=== PATIENT | female | born 1985 | race Caucasian/White ===

== ENCOUNTER → 2017-04-20 | Outpatient (CLI) | payer OTHER ==
[~2017-04-20] MED LIST: ENOX40SY4 SQ; HEPARIN; HEPARIN 5000 UNIT SC; IBUP800T PO; OXYC-302 PO; PREN1TAB60 PO
== END | disposition home or self-care (01) ==
LOC: CFH 08:02
PROVIDERS: ATTEND Obstetrics & Gynecology
DX: N63 Unspecified lump in breast (principal); Z80.3 Family history of malignant neoplasm of breast
CPT/HCPCS: 76641; G0204

== ENCOUNTER 2017-09-19 08:37 | Emergency (ER) | payer OTHER ==
[~2017-09-19] VITALS: Ht 172.7 cm; Wt 69.7 kg
[~2017-09-19 08:37] MED LIST changes: +IBUP-1223 PO; -IBUP800T PO
[2017-09-19 08:51] VITALS: BP 131/85
[2017-09-19] MEDS ORDERED: SODIUM CHLORIDE FLUSH 10ML SYR IVF ONE (10:00)
[2017-09-19] MEDS ORDERED: PROMETHAZINE 25 MG/ML, 1ML IM ONE (10:00)
[2017-09-19] MEDS ORDERED: SODIUM CHLORIDE 0.9% 1,000ML IVBOLUS ONE (10:00)
[2017-09-19] MEDS ORDERED: SODIUM CHLORIDE 0.9%, 500ML IVBOLUS ONE ×2 (10:00→11:30)
[2017-09-19 10:15] LABS: HEMATOCRIT 41.7 % (34.6-47.8); HEMOGLOBIN 14.3 g/dL (11.7-16.4); WHITE BLOOD COUNT 9.9 x10^3/uL (3.4-10)
[2017-09-19] MEDS ORDERED: PROMETHAZINE 25 MG/ML, 1ML ONE (10:24)
[2017-09-19 10:27] LABS: BLOOD UREA NITROGEN 6 mg/dL (7-18)
[2017-09-19 10:30] LABS: ASPARTATE AMINO TRANSFERASE 11 U/L (15-37)
== END 2017-09-19 12:30 | disposition home or self-care (01) ==
LOC: ED 10:17
DX: O99.282 Endocrine, nutritional and metabolic diseases complicating pregnancy, second trimester (principal); O99.352 Diseases of the nervous system complicating pregnancy, second trimester; O21.9 Vomiting of pregnancy, unspecified; E86.0 Dehydration; R11.0 Nausea; Z3A.17 17 weeks gestation of pregnancy
CPT/HCPCS: 36415; 80053; 85025; 96372; 99284; J2550; J7030

== ENCOUNTER 2018-01-09 09:37 | Observation (INO) | payer OTHER ==
[~2018-01-09] VITALS: Ht 172.7 cm; Wt 78.2 kg
[~2018-01-09 09:37] MED LIST changes: +ASPI-515 PO
[2018-01-09 12:54] VITALS: BP 129/74
== END 2018-01-09 13:54 | disposition home or self-care (01) ==
LOC: LDIP 09:37
PROVIDERS: ADMIT Obstetrics & Gynecology; ATTEND Obstetrics & Gynecology
DX: O76 Abnormality in fetal heart rate and rhythm complicating labor and delivery (principal); Z3A.32 32 weeks gestation of pregnancy
CPT/HCPCS: 59025; 76819; 99211; G0378; G0463

== ENCOUNTER 2018-01-30 10:05 | Inpatient (IN) | payer OTHER ==
[~2018-01-30] VITALS: Ht 172.7 cm; Wt 80.0 kg
[2018-01-30 10:58] LABS: MICROSCOPIC INDICATED
[2018-01-30] MEDS ORDERED: PLEASE ENTER HEIGHT AND WEIGHT MC SCH (11:00)
[2018-01-30] MEDS ORDERED: BETAMETHASONE 6 MG/ML, 5ML IM ONE (11:06)
[2018-01-30] MEDS: BETAMETHASONE 6 MG/ML, 5ML IM SCH (11:09)
[2018-01-30 11:10] LABS: BASOPHILS # (AUTO) 0.01 x10^3/uL (0-0.1); BASOPHILS % (AUTO) 0 % (0-1); EOSINOPHILS # (AUTO) 0.05 x10^3/uL (0-0.4); EOSINOPHILS % (AUTO) 1 % (1-7); LYMPHOCYTES # (AUTO) 1.15 x10^3/uL (1-3.4); LYMPHOCYTES % (AUTO) 13 % (22-44); MD NO; MEAN CORPUSCULAR HEMOGLOBIN 30.9 pg (27.0-34.8); MEAN CORPUSCULAR HGB CONC 33.4 g/dL (32.4-35.8); MEAN CORPUSCULAR VOLUME 92.5 fL (80-100); MEAN PLATELET VOLUME 9.4 fL (7.4-10.4); MONOCYTES # (AUTO) 0.65 x10^3/uL (0.2-0.8); MONOCYTES % (AUTO) 8 % (2-9); NEUTROPHILS # (AUTO) 6.79 x10^3/uL (1.8-6.8); NEUTROPHILS % (AUTO) 79 % (42-75); PLATELET COUNT 185 x10^3/uL (130-400); RED BLOOD COUNT 3.85 x10^6/uL (3.82-5.3); RED CELL DISTRIBUTION WIDTH 13.7 % (9.6-15.2)
[2018-01-30 11:21] LABS: ALANINE AMINOTRANSFERASE 15 U/L (12-78); ALBUMIN 2.6 g/dL (3.4-5.0); ANION GAP 8 mmol/L (5-15); CALCIUM 9.2 mg/dL (8.5-10.1); CHLORIDE 106 mmol/L (98-107); CREATININE 0.65 mg/dL (0.55-1.02)
[2018-01-30 11:24] VITALS: BP 133/79
[2018-01-30 11:24] LABS: ALKALINE PHOSPHATASE 116 U/L (45-117); BILIRUBIN,TOTAL 0.2 mg/dL (0.2-1.0); TOTAL PROTEIN 6.6 g/dL (6.4-8.2)
[2018-01-30 11:29] LABS: BILIRUBIN, DIRECT < 0.1 mg/dL (0.1-0.2)
[2018-01-30] MEDS ORDERED: LABETALOL 100 MG TABLET ONE ×2 (18:20→20:34)
[2018-01-30] MEDS ORDERED: CALCIUM CARBONATE 500 MG TAB.CHEW ONE (19:26)
[2018-01-30] MEDS: CALCIUM CARBONATE 500 MG TAB.CHEW PO PRN (19:32)
[2018-01-30] MEDS: HEPARIN 5,000 UNITS/ML, 1ML SQ SCH (19:47)
[2018-01-30] MEDS: LABETALOL 100 MG TABLET PO SCH (20:38)
[2018-01-30] MEDS ORDERED: ZOLPIDEM 5MG TABLET ONE (22:44)
[2018-01-30] MEDS: ZOLPIDEM 5MG TABLET PO PRN (22:46)
[2018-01-31] MEDS ORDERED: CALCIUM CARBONATE 500 MG TAB.CHEW ONE ×2 (00:35→03:08)
[2018-01-31] MEDS: CALCIUM CARBONATE 500 MG TAB.CHEW PO PRN ×2 (00:36→03:10)
[2018-01-31] MEDS: LABETALOL 100 MG TABLET PO SCH (06:00)
[2018-01-31 10:16] LABS: BASOPHILS # (AUTO) 0.02 x10^3/uL (0-0.1); BASOPHILS % (AUTO) 0 % (0-1); EOSINOPHILS # (AUTO) 0.01 x10^3/uL (0-0.4); EOSINOPHILS % (AUTO) 0 % (1-7); LYMPHOCYTES % (AUTO) 10 % (22-44); MD NO; MEAN CORPUSCULAR HEMOGLOBIN 31.1 pg (27.0-34.8); MEAN CORPUSCULAR HGB CONC 33.8 g/dL (32.4-35.8); MEAN CORPUSCULAR VOLUME 91.9 fL (80-100); MEAN PLATELET VOLUME 9.2 fL (7.4-10.4); MONOCYTES # (AUTO) 0.64 x10^3/uL (0.2-0.8); MONOCYTES % (AUTO) 5 % (2-9); NEUTROPHILS # (AUTO) 10.27 x10^3/uL (1.8-6.8); NEUTROPHILS % (AUTO) 85 % (42-75); PLATELET COUNT 197 x10^3/uL (130-400); RED BLOOD COUNT 3.77 x10^6/uL (3.82-5.3); RED CELL DISTRIBUTION WIDTH 13.5 % (9.6-15.2)
[2018-01-31 10:26] LABS: ALANINE AMINOTRANSFERASE 14 U/L (12-78); ALBUMIN 2.7 g/dL (3.4-5.0); ANION GAP 15 mmol/L (5-15); CALCIUM 9.1 mg/dL (8.5-10.1); CHLORIDE 104 mmol/L (98-107)
[2018-01-31 10:29] LABS: ALKALINE PHOSPHATASE 114 U/L (45-117); BILIRUBIN, DIRECT < 0.1 mg/dL (0.1-0.2); BILIRUBIN,TOTAL 0.3 mg/dL (0.2-1.0); CREATININE 0.79 mg/dL (0.55-1.02); TOTAL PROTEIN 6.7 g/dL (6.4-8.2)
[2018-01-31] MEDS: BETAMETHASONE 6 MG/ML, 5ML IM SCH (11:12)
[2018-01-31] MEDS ORDERED: FAMOTIDINE 20 MG TABLET ONE (17:59)
[2018-01-31] MEDS: FAMOTIDINE 20 MG TABLET PO SCH (18:01)
[2018-01-31] MEDS: HEPARIN 5,000 UNITS/ML, 1ML SQ SCH ×2 (18:30→19:31)
[2018-01-31] MEDS ORDERED: HEPARIN 5,000 UNITS/ML, 1ML ONE (18:53)
[2018-02-01] MEDS ORDERED: HEPARIN 5,000 UNITS/ML, 1ML SQ SCH (06:30)
[2018-02-01] MEDS ORDERED: ACETAMINOPHEN 325 MG TABLET ONE (07:09)
[2018-02-01] MEDS ORDERED: HEPARIN 5,000 UNITS/ML, 1ML ONE ×2 (07:13→19:02)
[2018-02-01 07:15] VITALS: BP 113/66
[2018-02-01] MEDS ORDERED: ACETAMINOPHEN 325 MG TABLET PO PRN (07:30)
[2018-02-01] MEDS: HEPARIN 5,000 UNITS/ML, 1ML SQ SCH (19:06)
[2018-02-01] MEDS ORDERED: FAMOTIDINE 20 MG TABLET ONE (19:12)
[2018-02-01] MEDS: FAMOTIDINE 20 MG TABLET PO SCH (19:14)
[2018-02-01] MEDS ORDERED: ZOLPIDEM 5MG TABLET ONE (21:48)
[2018-02-01] MEDS: ZOLPIDEM 5MG TABLET PO PRN (21:51)
[2018-02-02] MEDS ORDERED: HEPARIN 5,000 UNITS/ML, 1ML ONE (07:24)
[2018-02-02] MEDS: HEPARIN 5,000 UNITS/ML, 1ML SQ SCH (07:41)
[2018-02-02 09:45] VITALS: BP 143/74
[2018-02-02 16:15] VITALS: BP 142/76
[2018-02-02] MEDS ORDERED: OXYTOCIN 30U/ 0.9% NaCL 500ML 500 ML IV ONE (19:10)
[2018-02-02] MEDS ORDERED: FENTANYL/BUPIV./NS/PF 250 ML EPIDCONT SCH (19:10)
[2018-02-02] MEDS ORDERED: OXYTOCIN 30U/ 0.9% NaCL 500ML 500 ML IV PRN (19:10)
[2018-02-02] MEDS ORDERED: LACTATED RINGERS 1,000 ML IVBOLUS PRN (19:30)
[2018-02-02] MEDS: FAMOTIDINE 20 MG TABLET PO SCH (21:00)
[2018-02-02] MEDS ORDERED: ZOLPIDEM 5MG TABLET ONE (21:02)
[2018-02-02] MEDS: ZOLPIDEM 5MG TABLET PO PRN (21:03)
[2018-02-03] MEDS ORDERED: OXYTOCIN 30U/ 0.9% NaCL 500ML 500 ML ONE (02:04)
[2018-02-03] MEDS ORDERED: NEWBORN KIT ONE (02:04)
[2018-02-03] MEDS: LACTATED RINGERS 1,000 ML IV SCH ×7 (06:00→22:55)
[2018-02-03 06:05] LABS: BASOPHILS # (AUTO) 0.03 x10^3/uL (0-0.1); BASOPHILS % (AUTO) 0 % (0-1); EOSINOPHILS % (AUTO) 1 % (1-7); LYMPHOCYTES % (AUTO) 17 % (22-44); MD NO; MEAN CORPUSCULAR HEMOGLOBIN 31.3 pg (27.0-34.8); MEAN CORPUSCULAR HGB CONC 33.6 g/dL (32.4-35.8); MEAN CORPUSCULAR VOLUME 93.3 fL (80-100); MEAN PLATELET VOLUME 9.5 fL (7.4-10.4); MONOCYTES # (AUTO) 0.77 x10^3/uL (0.2-0.8); MONOCYTES % (AUTO) 7 % (2-9); NEUTROPHILS # (AUTO) 8.17 x10^3/uL (1.8-6.8); NEUTROPHILS % (AUTO) 75 % (42-75); PLATELET COUNT 223 x10^3/uL (130-400); RED BLOOD COUNT 3.97 x10^6/uL (3.82-5.3); RED CELL DISTRIBUTION WIDTH 13.6 % (9.6-15.2)
[2018-02-03 06:13] LABS: INTERNATIONAL NORMALIZED RATIO 0.92 (0.93-1.1); PROTHROMBIN TIME 9.6 Seconds (9.6-11.5)
[2018-02-03 06:16] LABS: ALANINE AMINOTRANSFERASE 15 U/L (12-78); ALBUMIN 2.7 g/dL (3.4-5.0); ANION GAP 13 mmol/L (5-15); CALCIUM 8.3 mg/dL (8.5-10.1); CHLORIDE 104 mmol/L (98-107); CREATININE 0.74 mg/dL (0.55-1.02)
[2018-02-03 06:18] LABS: ALKALINE PHOSPHATASE 122 U/L (45-117); BILIRUBIN,TOTAL 0.3 mg/dL (0.2-1.0); TOTAL PROTEIN 6.8 g/dL (6.4-8.2)
[2018-02-03] MEDS ORDERED: FENTANYL/BUPIV./NS/PF 250 ML EPIDCONT ONE (07:20)
[2018-02-03] MEDS ORDERED: BUPIVACAINE/PF 0.25% ONE (07:20)
[2018-02-03] MEDS ORDERED: BUPIVACAINE 0.25% ONE (07:22)
[2018-02-03] MEDS ORDERED: LIDOCAINE/PF 1.5%-EPI 1:200K, 30ML ONE (07:22)
[2018-02-03] MEDS ORDERED: LIDOCAINE 2%, 10ML ONE ×3 (07:22→13:22)
[2018-02-03] MEDS ORDERED: FENTANYL/BUPIV./NS/PF 250 ML EPIDCONT SCH (10:00)
[2018-02-03] MEDS ORDERED: LACTATED RINGERS 1,000 ML IV SCH ×2 (10:00→13:19)
[2018-02-03] MEDS ORDERED: EPHEDRINE 50 MG/ML, 1ML IVPush PRN (10:00)
[2018-02-03] MEDS ORDERED: LACTATED RINGERS 1,000 ML IVBOLUS PRN (10:00)
[2018-02-03] MEDS ORDERED: NALOXONE 0.4 MG/ML, 1ML IVPush PRN (10:00)
[2018-02-03] MEDS ORDERED: LIDOCAINE-MPF 2% ,5ML ONE (11:59)
[2018-02-03] MEDS ORDERED: TERBUTALINE 1 MG/ML, 1ML ONE (12:27)
[2018-02-03] MEDS ORDERED: TERBUTALINE 1 MG/ML, 1ML IVPush PRN (12:30)
[2018-02-03] MEDS ORDERED: OXYTOCIN 30U/ 0.9% NaCL 500ML 500 ML IV SCH (13:19)
[2018-02-03] MEDS ORDERED: METOCLOPRAMIDE 5 MG/ML, 2ML ONE (13:20)
[2018-02-03] MEDS ORDERED: SODIUM CITRATE/CITRIC ACID 30 ML UDC ONE ×3 (13:20→13:21)
[2018-02-03] MEDS ORDERED: LACTATED RINGERS 1,000 ML IVBOLUS ONE (13:30)
[2018-02-03] MEDS ORDERED: SODIUM CITRATE/CITRIC ACID 30 ML UDC PO ONE (13:30)
[2018-02-03] MEDS ORDERED: METOCLOPRAMIDE 5 MG/ML, 2ML IV ONE (13:30)
[2018-02-03] MEDS ORDERED: EPHEDRINE 50 MG/ML, 1ML ONE (14:07)
[2018-02-03] MEDS ORDERED: OXYTOCIN 10 UNITS/ML, 1ML ONE (14:07)
[2018-02-03] MEDS ORDERED: CEFAZOLIN 1,000 MG ONE (14:07)
[2018-02-03] MEDS ORDERED: FENTANYL PF 100 MCG/2ML ONE ×2 (14:13→14:20)
[2018-02-03] MEDS: KETOROLAC 30 MG/1 ML IV SCH ×2 (14:30→21:00)
[2018-02-03] MEDS ORDERED: OXYcodone 5 MG/5 ML ORAL.SOL UDC ONE (14:46)
[2018-02-03] MEDS: OXYTOCIN 30U/ 0.9% NaCL 500ML 500 ML IV SCH (14:55)
[2018-02-03] MEDS ORDERED: MISOPROSTOL 200 MCG TABLET PR PRN (15:00)
[2018-02-03] MEDS ORDERED: CALCIUM CARBONATE 500 MG TAB.CHEW PO PRN (15:00)
[2018-02-03] MEDS ORDERED: IBUPROFEN 600 MG TABLET PO PRN (15:00)
[2018-02-03] MEDS ORDERED: MEPERIDINE/PF 50 MG/ML IVPush PRN (15:00)
[2018-02-03] MEDS ORDERED: OXYcodone/APAP 5/325MG TABLET PO PRN (15:00)
[2018-02-03] MEDS ORDERED: SIMETHICONE 80 MG CHEW TAB PO PRN (15:00)
[2018-02-03] MEDS ORDERED: ACETAMINOPHEN 325 MG TABLET PO PRN ×2 (15:00)
[2018-02-03] MEDS ORDERED: MEPERIDINE/PF 100 MG/ML IVPush PRN (15:00)
[2018-02-03] MEDS ORDERED: BISACODYL 10 MG SUPP PR PRN (15:00)
[2018-02-03] MEDS ORDERED: CARBOPROST TROMETHAMINE 250 MCG/ML, 1ML IM PRN (15:00)
[2018-02-03] MEDS ORDERED: MORPHINE SULFATE 4 MG/ML, 1ML ONE (16:19)
[2018-02-03 16:50] VITALS: BP 136/75
[2018-02-03] MEDS ORDERED: MORPHINE SULFATE 4 MG/ML, 1ML IVPush ONE (17:00)
[2018-02-03] MEDS: OXYcodone/APAP 5/325MG TABLET PO PRN ×2 (17:28→21:27)
[2018-02-03 19:17] VITALS: BP 127/77
[2018-02-03] MEDS: FAMOTIDINE 20 MG TABLET PO SCH (21:00)
[2018-02-03 22:50] LABS: BASOPHILS # (AUTO) 0.03 x10^3/uL (0-0.1); BASOPHILS % (AUTO) 0 % (0-1); EOSINOPHILS # (AUTO) 0.04 x10^3/uL (0-0.4); EOSINOPHILS % (AUTO) 0 % (1-7); LYMPHOCYTES # (AUTO) 1.63 x10^3/uL (1-3.4); LYMPHOCYTES % (AUTO) 13 % (22-44); MD NO; MEAN CORPUSCULAR HEMOGLOBIN 31.4 pg (27.0-34.8); MEAN CORPUSCULAR HGB CONC 34.1 g/dL (32.4-35.8); MEAN CORPUSCULAR VOLUME 92.2 fL (80-100); MEAN PLATELET VOLUME 9.1 fL (7.4-10.4); MONOCYTES # (AUTO) 0.57 x10^3/uL (0.2-0.8); MONOCYTES % (AUTO) 5 % (2-9); NEUTROPHILS % (AUTO) 82 % (42-75); PLATELET COUNT 177 x10^3/uL (130-400); RED BLOOD COUNT 3.44 x10^6/uL (3.82-5.3); RED CELL DISTRIBUTION WIDTH 13.8 % (9.6-15.2)
[2018-02-03 23:57] VITALS: BP 114/69
[2018-02-04] MEDS: LACTATED RINGERS 1,000 ML IV SCH ×6 (00:55→14:55)
[2018-02-04] MEDS: OXYTOCIN 30U/ 0.9% NaCL 500ML 500 ML IV SCH ×3 (00:55→20:55)
[2018-02-04] MEDS: HEPARIN 5,000 UNITS/ML, 1ML SQ SCH ×2 (02:08→16:50)
[2018-02-04] MEDS: OXYcodone/APAP 5/325MG TABLET PO PRN ×2 (02:15→08:23)
[2018-02-04] MEDS: KETOROLAC 30 MG/1 ML IV SCH (03:14)
[2018-02-04 04:45] VITALS: BP 109/62
[2018-02-04 07:00] VITALS: BP 108/67
[2018-02-04] MEDS: DOCUSATE 100 MG CAPSULE PO PRN ×2 (08:23→19:19)
[2018-02-04] MEDS: PRENATAL VIT/IRON/FA 1 EACH TABLET PO SCH (09:00)
[2018-02-04] MEDS: ACETAMINOPHEN 325 MG TABLET PO SCH ×4 (09:00→21:00)
[2018-02-04] MEDS: IBUPROFEN 600 MG TABLET PO SCH ×3 (09:12→21:01)
[2018-02-04 11:35] VITALS: BP 114/65
[2018-02-04] MEDS: OXYcodone IR 5MG TABLET PO PRN ×3 (13:11→23:53)
[2018-02-04 20:35] VITALS: BP 126/79
[2018-02-04] MEDS: FAMOTIDINE 20 MG TABLET PO SCH (21:00)
[2018-02-05] MEDS: ACETAMINOPHEN 325 MG TABLET PO SCH ×6 (01:00→21:00)
[2018-02-05] MEDS: IBUPROFEN 600 MG TABLET PO SCH ×4 (02:58→23:21)
[2018-02-05] MEDS: OXYcodone IR 5MG TABLET PO PRN ×4 (04:02→20:00)
[2018-02-05] MEDS: HEPARIN 5,000 UNITS/ML, 1ML SQ SCH ×2 (06:59→19:04)
[2018-02-05 07:20] VITALS: BP 122/76
[2018-02-05 08:57] LABS: MICROSCOPIC AUTO
[2018-02-05 08:59] LABS: CULTURE INDICATED? YES
[2018-02-05] MEDS: PRENATAL VIT/IRON/FA 1 EACH TABLET PO SCH (09:00)
[2018-02-05] MEDS: DOCUSATE 100 MG CAPSULE PO PRN ×2 (09:18→19:59)
[2018-02-05] MEDS ORDERED: MISOPROSTOL 200 MCG TABLET ONE (14:00)
[2018-02-05 19:40] VITALS: BP 130/85
[2018-02-05] MEDS: FAMOTIDINE 20 MG TABLET PO SCH (21:00)
[2018-02-06] MEDS: ACETAMINOPHEN 325 MG TABLET PO SCH ×4 (01:00→13:00)
[2018-02-06] MEDS: IBUPROFEN 600 MG TABLET PO SCH ×2 (04:51→10:46)
[2018-02-06] MEDS: OXYcodone IR 5MG TABLET PO PRN ×2 (04:51→10:46)
[2018-02-06] MEDS: HEPARIN 5,000 UNITS/ML, 1ML SQ SCH (07:04)
[2018-02-06 07:44] VITALS: BP 117/74
[2018-02-06] MEDS: DOCUSATE 100 MG CAPSULE PO PRN (08:58)
[2018-02-06] MEDS: PRENATAL VIT/IRON/FA 1 EACH TABLET PO SCH (09:00)
[2018-02-06] MEDS ORDERED: IBUP-1222 PO (12:47)
[2018-02-06] MEDS ORDERED: DOCU-131 PO (12:47)
[2018-02-06] MEDS ORDERED: OXYC-302 PO (12:47)
== END 2018-02-06 13:55 | disposition home or self-care (01) | DRG 766 ==
LOC: LDOP 10:05 → LDIP 10:38 → 2NW 02-03 16:45
PROVIDERS: ADMIT Obstetrics & Gynecology; ATTEND Obstetrics & Gynecology
PROC: 10D00Z1 Extraction of Products of Conception, Low, Open Approach (ICD-10-PCS; principal; 2018-02-03)
PROC: 0UB70ZZ Excision of Bilateral Fallopian Tubes, Open Approach (ICD-10-PCS; 2018-02-03)
PROC: 10S0XZZ Reposition Products of Conception, External Approach (ICD-10-PCS; 2018-02-03)
DX: O32.1XX0 Maternal care for breech presentation, not applicable or unspecified (principal); O13.4 Gestational [pregnancy-induced] hypertension without significant proteinuria, complicating childbirth; O26.893 Other specified pregnancy related conditions, third trimester; O14.94 Unspecified pre-eclampsia, complicating childbirth; Z37.0 Single live birth; Z86.711 Personal history of pulmonary embolism; Z3A.36 36 weeks gestation of pregnancy; Z30.2 Encounter for sterilization
CPT/HCPCS: 36415; 59412; 76815; 80053; 81001; 81050; 82248; 82570; 84156; 84550; 85025; 85610; 85730; 86850; 86900; 87077; 87081; 87086; 88302; J0690; J0702; J1644; J1885; J3010; J3490; J2590; J3105; J7120

== ENCOUNTER → 2019-08-03 | Outpatient (CLI) | payer OTHER ==
[~2019-08-03] MED LIST changes: +DOCU-131 PO; +IBUP-1222 PO
[2019-08-03 10:12] LABS: BASOPHILS # (AUTO) 0.03 x10^3/uL (0-0.1); BASOPHILS % (AUTO) 1 % (0-1); EOSINOPHILS # (AUTO) 0.19 x10^3/uL (0-0.4); EOSINOPHILS % (AUTO) 3 % (1-7); LYMPHOCYTES # (AUTO) 1.67 x10^3/uL (1-3.4); LYMPHOCYTES % (AUTO) 28 % (22-44); MD NO; MEAN CORPUSCULAR HEMOGLOBIN 33.1 pg (27.0-34.8); MEAN CORPUSCULAR HGB CONC 33.9 g/dL (32.4-35.8); MEAN CORPUSCULAR VOLUME 97.7 fL (80-100); MEAN PLATELET VOLUME 8.3 fL (7.4-10.4); MONOCYTES # (AUTO) 0.39 x10^3/uL (0.2-0.8); MONOCYTES % (AUTO) 7 % (2-9); NEUTROPHILS # (AUTO) 3.76 x10^3/uL (1.8-6.8); NEUTROPHILS % (AUTO) 62 % (42-75); PLATELET COUNT 237 x10^3/uL (130-400); RED BLOOD COUNT 4.45 x10^6/uL (3.82-5.3); RED CELL DISTRIBUTION WIDTH 12.9 % (9.6-15.2)
[2019-08-03 10:20] LABS: ANION GAP 7 mmol/L (5-15); CALCIUM 8.7 mg/dL (8.5-10.1); CHLORIDE 107 mmol/L (98-107); CREATININE 0.92 mg/dL (0.55-1.02)
== END | disposition home or self-care (01) ==
LOC: LAB 09:52
PROVIDERS: ATTEND Obstetrics & Gynecology
DX: Z01.818 Encounter for other preprocedural examination (principal); N92.0 Excessive and frequent menstruation with regular cycle; I82.499 Acute embolism and thrombosis of other specified deep vein of unspecified lower extremity; Z88.8 Allergy status to other drugs, medicaments and biological substances
CPT/HCPCS: 36415; 80048; 84702; 85025

== ENCOUNTER 2019-08-10 05:40 | Day surgery (SDC) | payer OTHER ==
[~2019-08-10] VITALS: Ht 172.7 cm; Wt 64.3 kg
[2019-08-10] MEDS ORDERED: LACTATED RINGERS 1,000 ML IV SCH (06:06)
[2019-08-10 06:17] VITALS: BP_SYST 113; BP_SYST 138; BP_DIAS 69; BP_DIAS 72
[2019-08-10] MEDS ORDERED: LIDOCAINE-MPF 1%, 2ML INFIL ONE (06:30)
[2019-08-10] MEDS ORDERED: EREN70AU SQ (06:38)
[2019-08-10] MEDS ORDERED: ASPI-496 PO (06:38)
[2019-08-10] MEDS ORDERED: EPINEPHRINE 1 MG/ML, 1ML ONE (07:15)
[2019-08-10] MEDS ORDERED: BUPIVACAINE/PF 0.25% ONE (07:15)
[2019-08-10] MEDS ORDERED: hydrALAzine 20 MG/ML, 1ML IV PRN (07:30)
[2019-08-10] MEDS ORDERED: HYDROmorphone 2 MG/ML, 1ML IVPush PRN (07:30)
[2019-08-10] MEDS ORDERED: PROMETHAZINE 25 MG/ML, 1ML IV PRN (07:30)
[2019-08-10] MEDS ORDERED: HALOPERIDOL 5 MG/ML IV PRN (07:30)
[2019-08-10] MEDS ORDERED: LABETALOL 5MG/ML, 20ML IV PRN (07:30)
[2019-08-10] MEDS ORDERED: OXYcodone 5 MG/5 ML ORAL.SOL UDC PO PRN (07:30)
[2019-08-10] MEDS ORDERED: FENTANYL PF 100 MCG/2ML IV PRN (07:30)
[2019-08-10] MEDS ORDERED: SCOPOLAMINE PATCH, 1.5MG PATCH.TD72 TD ONE (07:31)
[2019-08-10] MEDS ORDERED: FENTANYL PF 100 MCG/2ML ONE (07:34)
[2019-08-10] MEDS ORDERED: BUPIVACAINE/PF-EPI 0.25% 1:200K INFIL ONE (07:57)
[2019-08-10] MEDS ORDERED: SILVER NITRATE STICK TP ONE ×2 (07:58→08:01)
[2019-08-10] MEDS ORDERED: ONDANSETRON 2MG/ML, 2ML ONE (07:58)
[2019-08-10] MEDS ORDERED: DEXAMETHASONE 4 MG/ML, 1ML ONE (07:58)
[2019-08-10] MEDS ORDERED: CEFAZOLIN 1,000 MG ONE (07:58)
[2019-08-10] MEDS ORDERED: PROPOFOL 10 MG/ML, 20ML ONE (07:58)
[2019-08-10] MEDS ORDERED: KETOROLAC 30 MG/1 ML ONE (08:17)
[2019-08-10] MEDS ORDERED: HALOPERIDOL 5 MG/ML ONE (08:24)
[2019-08-10] MEDS ORDERED: MEPERIDINE/PF 25MG/ML,1ML ONE ×2 (08:25→08:53)
[2019-08-10] MEDS: MEPERIDINE/PF 25MG/ML,1ML IVPush PRN ×2 (08:29→08:50)
[2019-08-10] MEDS ORDERED: KETOROLAC 30 MG/1 ML IM PRN (09:00)
[2019-08-10] MEDS ORDERED: KETOROLAC 30 MG/1 ML IV PRN (09:00)
== END 2019-08-10 10:25 | disposition home or self-care (01) ==
LOC: OR 05:40
PROVIDERS: ATTEND Obstetrics & Gynecology
DX: N92.0 Excessive and frequent menstruation with regular cycle (principal); I10 Essential (primary) hypertension; G43.909 Migraine, unspecified, not intractable, without status migrainosus; Z86.711 Personal history of pulmonary embolism; Z88.8 Allergy status to other drugs, medicaments and biological substances; Z90.79 Acquired absence of other genital organ(s); Z98.890 Other specified postprocedural states; Z79.899 Other long term (current) drug therapy; Z80.3 Family history of malignant neoplasm of breast; Z82.49 Family history of ischemic heart disease and other diseases of the circulatory system
CPT/HCPCS: 58353; 81025; J0171; J1100; J2175; J2405; J2704; J3010; J3490; J7120; J0690

== ENCOUNTER 2021-01-27 18:05 | Observation (INO) | payer OTHER ==
[~2021-01-27] VITALS: Ht 172.7 cm; Wt 63.4 kg
[~2021-01-27 18:05] MED LIST changes: -[UNRECOGNIZED DRUG - OTHER]
--- NOTE | 2021-01-27 18:21 | NUR ---
TRIAGE: PATIENT ARRIVES WITH SOB/CHEST PRESSURE. SHE HAS TWO WEEK HX DIZZINESS. 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 HX PE 15 YEARS AGO.
[2021-01-27] MEDS ORDERED: DIPHENHYDRAMINE 50 MG/ML, 1ML IVPush ONE (19:30)
[2021-01-27] MEDS ORDERED: methylPREDNISolone SOD SUCC 125 MG/2 ML IVPush ONE (19:30)
[2021-01-27] MEDS ORDERED: methylPREDNISolone SOD SUCC 125 MG/2 ML ONE (19:43)
[2021-01-27] MEDS ORDERED: DIPHENHYDRAMINE 50 MG/ML, 1ML ONE (19:43)
[2021-01-27 20:26] LABS: TROPONIN I < 0.015 ng/mL (0.000-0.045)
[2021-01-27] MEDS ORDERED: OMNIPAQUE 350 MG/ML, 75ML BOTTLE ONE (20:40)
[2021-01-27] MEDS ORDERED: ACETAMINOPHEN 325 MG TABLET PO PRN (22:00)
[2021-01-27] MEDS ORDERED: NITROGLYCERIN 0.4 MG BOTTLE (25 TABS) SL PRN (22:00)
[2021-01-27] MEDS ORDERED: ENOXAPARIN 40 MG/0.4 ML SQ SCH (22:00)
[2021-01-27] MEDS ORDERED: NITROGLYCERIN 0.4 MG/SPRAY SL PRN (22:00)
[2021-01-27] MEDS ORDERED: morphine SULFATE 10 MG/ML, 1ML IV PRN (22:00)
[2021-01-27 22:34] LABS: CHOLESTEROL, TOTAL 170 mg/dL (140-239); TRIGLYCERIDES 53 mg/dL (50-200); VLDL CHOLESTEROL 11 mg/dL (0-25)
[2021-01-27 22:37] LABS: CHOL/HDL RATIO 2.2; HDL CHOL % 45 % (28-40); HDL CHOLESTEROL (DIRECT) 77 mg/dL (40-60); LDL CHOLESTEROL,CALCULATED 82 mg/dL (54-169); LDL/HDL RATIO 1.1 (0.5-3.0); TROPONIN I < 0.015 ng/mL (0.000-0.045)
[2021-01-27] MEDS ORDERED: [UNRECOGNIZED DRUG - OTHER] (22:40)
[2021-01-27 23:07] VITALS: BP_SYST 112; BP_SYST 113; BP_SYST 118; BP_DIAS 71; BP_DIAS 75; BP_DIAS 76
[2021-01-27] MEDS: SODIUM CHLORIDE FLUSH 10ML SYR IVF SCH (23:14)
[2021-01-27] MEDS: SODIUM CHLORIDE 0.9% 1,000 ML IV SCH (23:15)
[2021-01-27] MEDS ORDERED: MECLIZINE 25 MG TABLET PO PRN (23:30)
[2021-01-28 01:21] VITALS: BP 108/68
[2021-01-28 04:28] LABS: MEAN CORPUSCULAR HGB CONC 34.9 g/dL (32.4-35.8); MEAN PLATELET VOLUME 8.5 fL (7.4-10.4); PLATELET COUNT 211 x10^3/uL (130-400); RED BLOOD COUNT 3.91 x10^6/uL (3.82-5.3); RED CELL DISTRIBUTION WIDTH 12.8 % (9.6-15.2)
[2021-01-28 04:38] LABS: ANION GAP 4 mmol/L (5-15); CALCIUM 8.4 mg/dL (8.5-10.1); CHLORIDE 111 mmol/L (98-107)
[2021-01-28 04:46] LABS: TROPONIN I < 0.015 ng/mL (0.000-0.045)
[2021-01-28] MEDS ORDERED: ASPIRIN 325 MG TABLET EC PO SCH (06:00)
[2021-01-28 06:38] VITALS: BP 117/79
[2021-01-28] MEDS ORDERED: IBUPROFEN 200 MG TABLET PO PRN (08:00)
[2021-01-28] MEDS: SODIUM CHLORIDE FLUSH 10ML SYR IVF SCH (08:10)
[2021-01-28] MEDS: SODIUM CHLORIDE 0.9% 1,000 ML IV SCH (08:12)
[2021-01-28] MEDS ORDERED: SODIUM CHLORIDE FLUSH 10ML SYR IVF SCH (09:00)
[2021-01-28 10:07] VITALS: BP_SYST 107; BP_SYST 113; BP_SYST 118; BP_DIAS 71; BP_DIAS 72; BP_DIAS 75
[2021-01-28] MEDS ORDERED: REGADENOSON 0.4 MG/5 ML SYRINGE ONE (12:03)
[2021-01-28] MEDS ORDERED: PROCHLORPERAZINE 5 MG/ML, 2ML ONE (12:09)
[2021-01-28] MEDS ORDERED: MAGNESIUM SULFATE PMX 2GM/50ML 50 ML IV ONE (12:30)
[2021-01-28] MEDS ORDERED: PROCHLORPERAZINE 5 MG/ML, 2ML IVPush ONE (12:30)
[2021-01-28] MEDS ORDERED: KETOROLAC 30 MG/1 ML IVPush PRN (13:00)
[2021-01-28] MEDS ORDERED: DIPHENHYDRAMINE 50 MG/ML, 1ML IVPush ONE (13:30)
[2021-01-28] MEDS ORDERED: VALPROATE SODIUM 500 MG in SODIUM CHLORIDE 0.9% 100 ML IV ONE (14:00)
[2021-01-28 15:24] VITALS: BP 108/67
[2021-01-28] MEDS ORDERED: SUMATRIPTAN 100 MG TABLET PO PRN (15:30)
== END 2021-01-28 18:45 | disposition home or self-care (01) ==
LOC: ED 22:05 → EDIP 22:35 → 5SO 22:42
PROVIDERS: ADMIT Family Medicine; ATTEND Hospitalist
DX: R07.89 Other chest pain (principal); R06.00 Dyspnea, unspecified; R00.0 Tachycardia, unspecified; R55 Syncope and collapse; R94.31 Abnormal electrocardiogram [ECG] [EKG]; R42 Dizziness and giddiness; G43.109 Migraine with aura, not intractable, without status migrainosus; Z79.899 Other long term (current) drug therapy; Z79.82 Long term (current) use of aspirin; Z86.711 Personal history of pulmonary embolism
CPT/HCPCS: 36415; 70546; 70552; 71275; 78452; 80048; 80061; 83880; 84484; 85027; 93005; 93017; 93306; 93356; 96361; 96365; 96372; 96375; 96376; 99285; A9502; G0378; J1200; J1650; J1885; J2785; J2930; J7030; Q9967

== ENCOUNTER → 2021-01-27 | Outpatient (CLI) | payer OTHER ==
[~2021-01-27] MED LIST changes: +ASPI-496 PO; -ASPI-515 PO; +ASPI-963 PO; +EREN70AU SQ; -OXYC-302 PO; +OXYC1TAB14 PO; +[UNRECOGNIZED DRUG - OTHER]
== END | disposition home or self-care (01) ==
LOC: RAD 16:00
PROVIDERS: ATTEND Registered Nurse
DX: R42 Dizziness and giddiness (principal)
CPT/HCPCS: 70544; 70551